=== PATIENT | male | born 1965 | race Caucasian/White ===

== ENCOUNTER 2020-08-19 14:16 | Outpatient (CLI) | payer OTHER, SELFPAY | END 2020-08-19 14:17 | disposition home or self-care (01) | LOC: ANHCOVIDVC 14:16 | PROVIDERS: PCP Internal Medicine | DX: Z23 Encounter for immunization (principal) | CPT/HCPCS: 0001A; 91300 ==

== ENCOUNTER 2020-09-09 14:16 | Outpatient (CLI) | payer OTHER, SELFPAY | END 2020-09-09 14:17 | disposition home or self-care (01) | LOC: ANHCOVIDVC 14:16 | PROVIDERS: PCP Internal Medicine | DX: Z23 Encounter for immunization (principal) | CPT/HCPCS: 0002A; 91300 ==

== ENCOUNTER → 2021-02-07 08:06 | Outpatient (CLI) | payer OTHER, SELFPAY ==
--- NOTE | ~2021-02-07 | CT_ITS ---
EXAMINATION: CT sinus wo con EXAM DATE: 02/07/2021 08:19 INDICATION: Acute sinusitis . History deviation surgery 2 years ago. Left ear muffled. TECHNIQUE: Spiral CT of the sinuses was acquired in the axial plane. Coronal and sagittal reformatte d images were also reviewed. The dose-length product (DLP) for this examination was 277.35 mGy-cm. Iterative reconstruction (ASIR) was used as dose reduction technique. Comparison is made to prior exa mination from 06/20/2019. FINDINGS: Previous exam had right upper nasal septal deviation with a spine projecting to the right, which has been resected. Nasal septum is near midline on this exam. The sinuses are normally develop ed. The sinuses are well aerated. The ostiomeatal units are patent. There is no sinus wall thic kening. Moderate amount of fluid in the left mastoid air cells, and small amount on the right, effusions. Ext ernal auditory canals are patent. The orbits and visualized soft tissues are unremarkable. IMPRESSION: 1. Moderate left, small right mastoid effusions. 2. Interval nasal septal surgery. Reviewed, dictated and finalized at location A.
== END ==
PROVIDERS: PCP Internal Medicine; Visit Provider Otolaryngology
DX: J01.90 Acute sinusitis, unspecified (principal)
CPT/HCPCS: 70486

== ENCOUNTER 2021-07-30 12:34 | Outpatient (CLI) | payer OTHER, SELFPAY ==
--- NOTE | 2021-07-30 12:57 | ECHO_ITS ---
Patient Info Name: Aram Conte Age: 56 years : 1965 Gender: Male Ht: 65 in Wt: 215 lbs BSA: 2.16 m2 HR: 63 bpm BP: 153 / 90 mmHg Heart Rhythm: Sinus Rhythm Technical Quality: Good Exam Date: 07/30/2021 1:10 PM Exam Location: [facility] Patient Status: Outpatient Admit Date: 07/30/2021 Staff Ordering Physician: Krysta Dowd [employer] Dyeing Machine Operator: Gracie Barrera RCS Attending Provider: Krysta Dowd Referring Physician: Nile CABRERA; Exam Type: CA echo doppler w bubble study Study Info Indications - cerebral vascular infarction Complete two-dimensional, color flow and Doppler transthoracic echocardiogram is performed with agitated saline. Contrast/Agitated Saline Contrast/Ag. Saline: Agitated Saline Amount: 20.00 ml Existing IV Access: Yes New IV Access: Antecubital Space and Right Site Condition: IV removed Summary 1. Left ventricular chamber dimension is normal. 2. Left ventricular systolic function is normal, estimated at 60-65%. 3. There is mildly increased left ventricular wall thickness. 4. The left ventricular diastolic function is grade I diastolic dysfunction. 5. Right to left interatrial shunt with injection of agitated saline with Valsalva only suggestive of patent foramen ovale. Clinical correlation advised. Consider transesophageal echocardiogram if clinically indicated. 6. There is trace mitral valve regurgitation. 7. There is trace tricuspid valve regurgitation. 8. No pulmonary hypertension, estimated pulmonary arterial systolic pressure is 26 mmHg. Left Ventricle Left ventricular chamber dimension is normal. Left ventricular systolic function is normal, estimated at 60-65%. There is mildly increased left ventricular wall thickness. The left ventricular diastolic function is grade I diastolic dysfunction. Right Ventricle Right ventricular chamber dimension is normal. Right ventricular systolic function is normal. Left Atria Left atrial chamber dimension is normal. Right Atria Right atrial chamber dimension is normal. Atrial Septum Right to left interatrial shunt with injection of agitated saline with Valsalva only suggestive of patent foramen ovale. Clinical correlation advised. Consider transesophageal echocardiogram if clinically indicated. Aortic Valve The aortic valve is not well visualized. There is no aortic valve stenosis. There is no aortic valve regurgitation. Pulmonic Valve The pulmonic valve is not well visualized. Mitral Valve The mitral valve has normal leaflets. There is trace mitral valve regurgitation. The mitral valve annulus is mildly calcified. Tricuspid Valve The tricuspid valve leaflets are normal. There is trace tricuspid valve regurgitation. No pulmonary hypertension, estimated pulmonary arterial systolic pressure is 26 mmHg. Pericardium/Pleural The pericardium appears epicardial fat pad. There is no pericardial effusion. Inferior Vena Cava Normal inferior vena cava with >50% collapse upon inspiration consistent with normal right atrial pressure, 5 mmHg. Aorta The aortic root size at the sinus of Valsalva is normal. Left Ventricular Outflow Tract Name Value Normal LVOT 2D
== END 2021-07-30 12:35 | disposition home or self-care (01) ==
PROVIDERS: PCP Internal Medicine; Visit Provider Nurse Practitioner
DX: I63.9 Cerebral infarction, unspecified (principal)
CPT/HCPCS: 93306; 96375

== ENCOUNTER 2021-08-04 09:23 | Outpatient (CLI) | payer OTHER, SELFPAY ==
[2021-08-04 10:09] LABS: Alanine Aminotransferase 66 U/L (4-50); Albumin Level 4.1 g/dL (3.5-5.1); Alkaline Phosphatase 95 U/L (38-126); Anion Gap 9 mmol/L (8-16); Aspartate Amino Transferase 37 U/L (17-59); Bilirubin,Total 0.7 mg/dL (0.2-1.3); Blood Urea Nitrogen 23 mg/dL (9-20); Calcium 9.2 mg/dL (8.4-10.2); Carbon Dioxide 25 mmol/L (22-30); Chloride 108 mmol/L (98-107); Cholesterol 98 mg/dL (0-200); Estimated Glomerular Filt Rate > 60; Glucose 104 mg/dL (65-110); HDL Direct 30 mg/dL; Potassium 3.8 mmol/L (3.4-5.0); Sodium 142 mmol/L (137-145); Triglycerides 88 mg/dL (<150)
[2021-08-04 10:13] LABS: Hemoglobin A1C 5.6 % (<5.7)
[2021-08-04 10:19] LABS: LDL Cholesterol Direct 39 mg/dL
[2021-08-04 11:00] LABS: Prostate Specific Antigen 2.1 ng/mL (< OR = 4.0)
== END 2021-08-04 09:24 | disposition home or self-care (01) ==
LOC: ANHLAB 09:24
PROVIDERS: PCP Internal Medicine; Visit Provider Nurse Practitioner
DX: E78.00 Pure hypercholesterolemia, unspecified (principal); R73.09 Other abnormal glucose; Z12.5 Encounter for screening for malignant neoplasm of prostate
CPT/HCPCS: 36415; 80053; 80061; 83036; 84153; G0103

== ENCOUNTER 2022-02-05 11:13 | Outpatient (CLI) | payer OTHER, SELFPAY ==
[2022-02-05 12:15] LABS: Alanine Aminotransferase 45 U/L (6-50); Alkaline Phosphatase 94 U/L (38-126); Anion Gap 9 mmol/L (8-16); Aspartate Amino Transferase 30 U/L (17-59); Bilirubin,Total 0.8 mg/dL (0.2-1.3); Blood Urea Nitrogen 23 mg/dL (9-20); Calcium 9.5 mg/dL (8.4-10.2); Carbon Dioxide 28 mmol/L (22-30); Chloride 105 mmol/L (98-107); Cholesterol 127 mg/dL (0-200); Estimated Glomerular Filt Rate > 60; Glucose 98 mg/dL (65-110); HDL Direct 35 mg/dL; Potassium 4.8 mmol/L (3.4-5.0); Sodium 142 mmol/L (137-145); Triglycerides 122 mg/dL (<150)
[2022-02-05 12:27] LABS: LDL Cholesterol Direct 52 mg/dL
[2022-02-05 13:10] LABS: Hemoglobin A1C 5.7 % (<5.7)
== END 2022-02-05 11:14 | disposition home or self-care (01) ==
LOC: ANHLAB 11:14
PROVIDERS: PCP Internal Medicine; Visit Provider Internal Medicine
DX: E78.00 Pure hypercholesterolemia, unspecified (principal); F32.9 Major depressive disorder, single episode, unspecified; R73.09 Other abnormal glucose
CPT/HCPCS: 36415; 80053; 80061; 83036; 84443

== ENCOUNTER 2022-02-09 09:15 | Outpatient (CLI) | payer OTHER, SELFPAY ==
--- NOTE | ~2022-02-09 | XR_ITS ---
EXAMINATION: XR chest 2V Exam Date/Time: 02/09/2022 9:23 CDT HISTORY: R05.9 - Cough, POST COVID Comparison: 06/13/2009. RESULT: Lines, tubes, and devices: None. Lungs and pleura: Clear. Cardiomediastinal silhouette: Stable. Other: No acute osseous or upper abdominal finding. IMPRESSION: No acute cardiopulmonary process. Reviewed, dictated and finalized at location K.
== END 2022-02-09 09:16 | disposition home or self-care (01) ==
PROVIDERS: PCP Internal Medicine; Visit Provider Internal Medicine
DX: R05.9 Cough, unspecified (principal)
CPT/HCPCS: 71046

== ENCOUNTER 2022-03-02 00:41 | Day surgery (SDC) | payer OTHER, SELFPAY ==
[2022-02-12 14:32] VITALS: BMI 35.2
[2022-03-02 09:08] VITALS: BP 145/91; PULSE 71; RESP 18; TEMP 36.4; O2SAT 98; BMI 34.3
[2022-03-02] MEDS: LACTATED RINGERS 1,000 ML 150 ML IV CONT (09:18)
--- NOTE | 2022-03-02 09:32 | WPDANESEPPF ---
Anes - Initial Pre Proc Eval Procedure: Operation Date: 03/02/22 10:00 Proposed Procedures p Screening Colonoscopy - Layo Cruz MD Date/Time: 03/02/22 09:32 Surgeon: Layo Cruz MD Pre Op Diagnosis: family hx colon ca, neoplasm screening Patient Data Age: 56 Gender: M Height: 1.65 m Weight: 93.7 kg Last Vital Signs Temp 97.6 F 03/02/22 09:08 Pulse 71 03/02/22 09:08 Resp 18 03/02/22 09:08 BP 145/91 H 03/02/22 09:08 Pulse Ox 98 03/02/22 09:08 O2 Del Method Room Air 03/02/22 09:08 Allergies Allergy/AdvReac Type Severity Reaction Status Date / Time Penicillins Allergy Unknown Unknown Verified 03/02/22 09:10 Home Medications Medication Instructions Recorded Confirmed Type clonazepam 0.5 mg tablet 0.5 mg PO BID 08/08/19 03/02/22 History topiramate 50 mg tablet 50 mg PO DAILY 08/08/19 03/02/22 History aspirin 81 mg tablet,delayed 81 mg PO DAILY 07/07/21 03/02/22 History release ([place] Low Dose Aspirin) fluticasone propionate 50 2 spray intranasal DAILY 07/07/21 03/02/22 History mcg/actuation nasal spray,suspension (Flonase Allergy Relief) omeprazole 40 mg capsule,delayed 40 mg PO DAILY 07/07/21 03/02/22 History release metoprolol succinate 25 mg 12.5 mg PO DAILY #90 tabs 08/04/21 03/02/22 Rx tablet,extended release 24 hr loratadine 10 mg tablet (Claritin) 10 mg PO DAILY 09/16/21 03/02/22 History lisinopril 20 mg tablet 20 mg PO DAILY #90 tabs 09/30/21 03/02/22 Rx atorvastatin 40 mg tablet 40 mg PO DAILY 10/21/21 03/02/22 History Patient hx anesthesia problems: none Family hx anesthesia problems: none Results Review: All pre-operative results and documents have been reviewed as part of the pre-operative evaluation. [facility] Past Medical History Medical History HTN (hypertension) IBS (irritable bowel syndrome) Migraine Patulous eustachian tube, left ear Stroke Ulcer Surgical History Surgical History History of hand surgery rt hand Status post cervical spinal fusion C3-C4 Family History Family History Sibling Malignant neoplasm of prostate Patient's sister is in good health Patient's brother is in good health Mother Patient's mother is in good health Father Patient's father is in good health Social History Social History Smoking status: Never smoker Second hand tobacco smoke exposure: Yes Alcohol intake: current Drinks per week: 3 Alcohol use details: social Substance use: never Substance use type: does not use Living arrangements: with family Spiritual care concerns: No Anes - Eval Final PreProcedure Day of Procedure 03/02/22 09:32 Patient weight: obese Heart: regular rate and rhythm Lungs: clear to auscultation Airway: Mallampati scale class II Neurological: alert and oriented Last oral intake: >/= 8 hours ASA classification: III Emergent: no Anesthetic plan: proceed Anesthesia type and monitoring: general GIVS and standard monitoring Results Review: All pre-operative results and documents have been reviewed as part of the pre-operative evaluation. Informed Consent: The patient's anesthetic plan and its attendant risks and benefits were discussed with the patient/family/POA. Questions were solicited and answers provided to the satisfaction of the patient/family/POA.
--- NOTE | 2022-03-02 09:39 | PM.HPGS ---
History of Present Illness History of Present Illness Consent: Risks, benefits, and alternatives have been discussed and questions answered. Patient agrees to proceed with procedure. Chief complaint: family hx colon ca, neoplasm screening Narrative: Aram Cotne is a 56 year old male with colonoscopy 5 years ago, brother had colon cancer Review of Systems Constitutional: Constitutional: Denies headache(s) and Denies weakness Eyes: Eyes: Denies blurry vision ENT: Reports Normal hearing present, Denies headache(s) and Denies neck pain Cardiovascular: Cardiovascular: Denies chest pain and Denies dyspnea Respiratory: Respiratory: Denies dyspnea Gastrointestinal: Gastrointestinal: Reports no additional gastrointestinal complaints Genitourinary: Genitourinary: Denies dysuria Musculoskeletal: Musculoskeletal: Denies neck pain Integumentary/Breasts: Skin/Breast: Denies dry skin Neurologic: Reports Normal hearing present, Denies headache(s) and Denies weakness Psychiatric: Psychiatric: Denies anxiety Endocrine: Endocrine: Denies change in body appearance Hematologic/Lymphatic: Hematologic/Lymphatic: Denies easy bleeding Allergic/Immunologic: Allergic/Immunologic: Denies urticaria PMFSH Past Medical History Medical History HTN (hypertension) IBS (irritable bowel syndrome) Migraine Patulous eustachian tube, left ear Stroke Ulcer Surgical History Surgical History History of hand surgery rt hand Status post cervical spinal fusion C3-C4 Family History Family History Sibling Malignant neoplasm of prostate Patient's sister is in good health Patient's brother is in good health Mother Patient's mother is in good health Father Patient's father is in good health Social History Social History Smoking status: Never smoker Second hand tobacco smoke exposure: Yes Alcohol intake: current Drinks per week: 3 Alcohol use details: social Substance use: never Substance use type: does not use Living arrangements: with family Spiritual care concerns: No Meds Home Medications and Allergies Home Medications Medication Instructions Recorded Confirmed Type clonazepam 0.5 mg tablet 0.5 mg PO BID 08/08/19 03/02/22 History topiramate 50 mg tablet 50 mg PO DAILY 08/08/19 03/02/22 History aspirin 81 mg tablet,delayed 81 mg PO DAILY 07/07/21 03/02/22 History release ([place] Low Dose Aspirin) fluticasone propionate 50 2 spray intranasal DAILY 07/07/21 03/02/22 History mcg/actuation nasal spray,suspension (Flonase Allergy Relief) omeprazole 40 mg capsule,delayed 40 mg PO DAILY 07/07/21 03/02/22 History release metoprolol succinate 25 mg 12.5 mg PO DAILY #90 tabs 08/04/21 03/02/22 Rx tablet,extended release 24 hr loratadine 10 mg tablet (Claritin) 10 mg PO DAILY 09/16/21 03/02/22 History lisinopril 20 mg tablet 20 mg PO DAILY #90 tabs 09/30/21 03/02/22 Rx atorvastatin 40 mg tablet 40 mg PO DAILY 10/21/21 03/02/22 History Allergies Allergy/AdvReac Type Severity Reaction Status Date / Time Penicillins Allergy Unknown Unknown Verified 03/02/22 09:10 Vital Signs Vital Signs - 24 hr 03/02/22 09:08 Temperature 97.6 F Pulse Rate 71 Respiratory Rate 18 Blood Pressure 145/91 H Pulse Oximetry 98 Oxygen Delivery Room Air Exam Const: General: comfortable and no acute distress HENMT: General nose exam: Normal nares present Eyes: General: appearance normal, both eyes and all related structures Neck: Neck: no JVD Resp: Auscultation: clear to auscultation bilaterally Cardio: Rate: regular rate Rhythm: regular rhythm GI: Inspection: non-distended GI Palp: Yes Soft to palpation Skin: General skin exam: normal color Neuro:
[2022-03-02 09:54] VITALS: BP 131/82; PULSE 56; RESP 18; O2SAT 98
[2022-03-02 10:04] VITALS: BP 128/78; PULSE 54; RESP 18; O2SAT 98
== END 2022-03-02 10:18 | disposition home or self-care (01) ==
PROVIDERS: PCP Internal Medicine; Visit Provider Internal Medicine Gastroenterology
PROC: 0DJD8ZZ Inspection of Lower Intestinal Tract, Via Natural or Artificial Opening Endoscopic (ICD-10-PCS; CPT 45378; principal; 2022-03-02 10:00)
DX: Z12.11 Encounter for screening for malignant neoplasm of colon (principal); D12.4 Benign neoplasm of descending colon; Z80.0 Family history of malignant neoplasm of digestive organs; K64.8 Other hemorrhoids; I10 Essential (primary) hypertension; K58.9 Irritable bowel syndrome, unspecified; Z86.73 Personal history of transient ischemic attack (TIA), and cerebral infarction without residual deficits; Z98.1 Arthrodesis status; Z79.82 Long term (current) use of aspirin; E66.9 Obesity, unspecified; Z68.34 Body mass index [BMI] 34.0-34.9, adult
CPT/HCPCS: 45385; 88305; J2704; J7120

== ENCOUNTER 2022-05-06 14:22 | Outpatient (CLI) | payer OTHER, SELFPAY ==
--- NOTE | ~2022-05-06 | MR_ITS ---
EXAMINATION: MR brain/brain stem wo con DATE: 05/06/2022 14:58 INDICATION: Stroke TECHNIQUE: Magnetic resonance imaging (MRI) of the brain and brainstem was performed without intraven ous contrast. Sequences included sagittal and axial T1-weighted SE, axial diffusion-weighted FS SE, a xial T2*-weighted GRE, axial 3D SWAN, axial T2-weighted FLAIR, and axial T2-weighted FSE. Apparent di ffusion coefficient (ADC) maps were created. COMPARISON: Brain MR dated 01/05/2011 FINDINGS: There are no areas of restricted diffusion to suggest acute infarction. Single tiny focus of suscepti bility artifact consistent with chronic microhemorrhage along the sylvian fissure, unclear whether th is is on the frontal or temporal side of the fissure. No other intracranial hemorrhage. No abnormal i ntracranial mass lesion. There are no intraparenchymal signal abnormalities seen on the other pulse s equences. The ventricles are symmetric and normal in size. There are no abnormal extra-axial fluid co llections. Flow voids are seen in the cerebral arteries on the T2-weighted sequences consistent with their expected patency. Mild mucosal thickening at the bilateral ethmoid sinuses. Visualized orbits a nd soft tissues are unremarkable. IMPRESSION: 1. Single tiny focus of susceptibility artifact consistent with chronic microhemorrhage along the rig ht sylvian fissure. Otherwise normal brain MRI with no acute infarct.. Reviewed, dictated and finalized at location A. RV[employer] LIFEGUARD IMPRESSION: 1. Single tiny focus of susceptibility artifact consistent with chronic microhe morrhage along the right sylvian fissure. Otherwise normal brain MRI with no ac [place] infarct..
== END 2022-05-06 14:23 | disposition home or self-care (01) ==
PROVIDERS: PCP Internal Medicine; Visit Provider Psychiatry & Neurology Neurology
DX: I63.9 Cerebral infarction, unspecified (principal)
CPT/HCPCS: 70551

== ENCOUNTER 2022-06-06 13:23 | Emergency (ER) | payer OTHER, SELFPAY ==
--- NOTE | 2022-06-06 13:27 | ED.URI ---
HPI - URI/Sore Throat General Chief Complaint: Upper Respiratory Infection Stated Complaint: Congestion,Cough,Headache Time Seen by Provider: 06/06/22 13:36 Source: patient and RN notes reviewed Mode of arrival: ambulatory Limitations: no limitations History of Present Illness HPI Narrative: 56-year-old male presents concern for sinus drainage, cough, fever, headache discharge yesterday. Reports had a COVID test at home was negative. Reports his has similar symptoms. He denies body aches, chills, sweats, shortness of breath, nausea, vomiting, diarrhea MD elicited complaint: fever and cough Related Data Home Medications Medication Instructions Recorded Confirmed clonazepam 0.5 mg tablet 0.5 mg PO BID 08/08/19 06/06/22 topiramate 50 mg tablet 50 mg PO DAILY 08/08/19 06/06/22 aspirin 81 mg tablet,delayed 81 mg PO DAILY 07/07/21 06/06/22 release (Teetee Low Dose Aspirin) fluticasone propionate 50 2 spray intranasal DAILY 07/07/21 06/06/22 mcg/actuation nasal spray,suspension (Flonase Allergy Relief) omeprazole 40 mg capsule,delayed 40 mg PO DAILY 07/07/21 06/06/22 release loratadine 10 mg tablet (Claritin) 10 mg PO DAILY 09/16/21 06/06/22 atorvastatin 40 mg tablet 40 mg PO DAILY 10/21/21 06/06/22 Allergies Allergy/AdvReac Type Severity Reaction Status Date / Time Penicillins Allergy Unknown Unknown Verified 04/07/22 14:07 Review of Systems Review of Systems: CONSTITUTIONAL: Reports malaise, low-grade fever. EYES: Denies visual changes, redness, or discharge. ENT: Reports rhinorrhea, congestion. Denies sinus pain, otalgia and sore throat. CARDIOVASCULAR: Denies chest pain, palpitations, or edema. RESPIRATORY: Reports cough. Denies dyspnea. GASTROINTESTINAL: Denies abdominal pain, nausea, vomiting, diarrhea SKIN: Denies rash or itching. MUSCULOSKELETAL: Denies myalgia. NEUROLOGIC: Reports headache. All systems reviewed & are unremarkable except as noted in HPI and below PMFSH Past Medical History Medical History HTN (hypertension) IBS (irritable bowel syndrome) Migraine Patulous eustachian tube, left ear Stroke Ulcer Surgical History Surgical History History of hand surgery rt hand Status post cervical spinal fusion C3-C4 Family History Family History Sibling Malignant neoplasm of prostate Patient's sister is in good health Patient's brother is in good health Mother Patient's mother is in good health Father Patient's father is in good health Social History Social History Smoking status: Never smoker Second hand tobacco smoke exposure: Yes Alcohol intake: current Drinks per week: 3 Alcohol use details: social Substance use: never Substance use type: does not use Spiritual care concerns: No Comments At time of signature, agree with nursing past medical, surgical, social and family history. There is no relevant family history pertinent to the presenting complaint Exam Narrative: GENERAL: Well-appearing, well-nourished, and in no acute distress. HEAD: Normocephalic EYES: PERRLA, conjunctivae clear ENT: Nares clear, turbinates edematous and erythematous, clear discharge. Mucous membranes moist. TM pearly portillo with dull light reflex bilaterally; no tragal tenderness. Oropharynx not erythematous without lesions. Tonsils not enlarged and without exudate, no drooling, no hoarseness, no trismus, uvula midline. NECK: Supple. No lymphadenopathy CHEST: Clear to auscultation, breath sounds equal. No wheezing, rhonchi, rales, or stridor. No respiratory distress, speaks in full sentences. HEART: Regular rate and rhythm. No murmur heard. SKIN: Warm, dry, no rash. NEURO: Alert and oriented x3. PSYCH: Normal mood and affect Course Course Emergen
[2022-06-06 13:32] VITALS: BP 153/94; PULSE 110; RESP 18; TEMP 37.8; O2SAT 98
== END 2022-06-06 13:49 | disposition home or self-care (01) ==
PROVIDERS: Emergency Provider Nurse Practitioner; PCP Internal Medicine
DX: R05.9 Cough, unspecified (principal); R50.9 Fever, unspecified; R51.9 Headache, unspecified; R09.81 Nasal congestion; I10 Essential (primary) hypertension; Z79.82 Long term (current) use of aspirin
CPT/HCPCS: 99213; G0463

== ENCOUNTER 2022-06-26 16:53 | Emergency (ER) | payer OTHER, SELFPAY ==
--- NOTE | ~2022-06-26 | XR_ITS ---
XR ankle RT min 3V DATE: 06/26/2022 17:11 INDICATION: Rolled ankle 2 days ago; lateral pain. TECHNIQUE: 4 views COMPARISON: None FINDINGS: There is mild primarily lateral soft tissue swelling of the ankle. No fracture or dislocation of the ankle or disruption of the ankle mortise. No periosteal reaction or bone destruction. There is some anterior tibial artery calcification. IMPRESSION: Mild lateral soft tissue swelling Reviewed, dictated and finalized at location A. G [employer]RARIAN
[2022-06-26 17:15] VITALS: BP 156/91; PULSE 65; RESP 18; TEMP 36.2; O2SAT 100
--- NOTE | 2022-06-26 17:17 | ED.LOWEXIN ---
HPI - Extremity Injury (Lower) General Chief Complaint: Extremity Injury, Lower Stated Complaint: fall rt ankle injury Time Seen by Provider: 06/26/22 17:20 Source: patient Mode of arrival: ambulatory Limitations: no limitations History of Present Illness HPI Narrative: Aram is a 56-year-old male patient presenting to the clinic today with complaints of right ankle injury that occurred 2 nights ago. He reports that he stepped off of a step and thinks he may have inverted his foot. Reports pain to the lateral right ankle. Related Data Home Medications Medication Instructions Recorded Confirmed clonazepam 0.5 mg tablet 0.5 mg PO BID 08/08/19 06/06/22 topiramate 50 mg tablet 50 mg PO DAILY 08/08/19 06/06/22 aspirin 81 mg tablet,delayed 81 mg PO DAILY 07/07/21 06/06/22 release ([place]ee Low Dose Aspirin) fluticasone propionate 50 2 spray intranasal DAILY 07/07/21 06/06/22 mcg/actuation nasal spray,suspension (Flonase Allergy Relief) omeprazole 40 mg capsule,delayed 40 mg PO DAILY 07/07/21 06/06/22 release loratadine 10 mg tablet (Claritin) 10 mg PO DAILY 09/16/21 06/06/22 atorvastatin 40 mg tablet 40 mg PO DAILY 10/21/21 06/06/22 Allergies Allergy/AdvReac Type Severity Reaction Status Date / Time Penicillins AdvReac Mild Hives Verified 06/26/22 17:06 Review of Systems Review of Systems: Pertinent positives per HPI. Patient denies any fever, chills, rash, headache, visual changes, dizziness, cough, runny nose, sore throat, shortness of breath, chest pain, palpitations, nausea, vomiting, diarrhea, constipation, abdominal pain, or any urinary issues. [facility] Past Medical History Medical History HTN (hypertension) IBS (irritable bowel syndrome) Migraine Patulous eustachian tube, left ear Stroke Ulcer Surgical History Surgical History History of hand surgery rt hand Status post cervical spinal fusion C3-C4 Family History Family History Sibling Malignant neoplasm of prostate Patient's sister is in good health Patient's brother is in good health Mother Patient's mother is in good health Father Patient's father is in good health Social History Social History Smoking status: Never smoker Second hand tobacco smoke exposure: Yes Alcohol intake: current Drinks per week: 3 Alcohol use details: social Substance use: never Substance use type: does not use Spiritual care concerns: No Comments At the time of my signature, I reviewed and agree with the nursing past medical, surgical, social, and family history. There is no relevant family history pertinent to the patient complaint. Exam Narrative: General: Well-developed, well nourished, in no apparent distress Head: Normocephalic, atraumatic. Cardio: Regular rate and rhythm, s1 and s2 normal, no murmur appreciated. Resp: Clear to auscultation bilaterally, no rhonchi, rales, wheezing or rubs. Musculoskeletal: No deformity, bruising and swelling to the right lateral ankle and foot, tender to palpation over the right lateral distal fibula, some discomfort with eversion of the foot, grossly normal range of motion, muscle strength strong and equal, peripheral pulse strong, no cyanosis, normal gait and station Course Course Emergency Course: Portions of this record may have been created with voice recognition software. Level of Care: Express Care Visit Vital Signs Vital signs: Vital Signs Temperature 36.2 C L 06/26/22 17:15 Pulse Rate 65 06/26/22 17:15 Respiratory Rate 18 06/26/22 17:15 Blood Pressure 156/91 H 06/26/22 17:15 Pulse Oximetry 100 06/26/22 17:15 Oxygen Delivery Room Air 06/26/22 17:15 Temperature 36.2 C L 06/26/22 17:15 Pulse Rate 65 06/26/22 17:15 Respirator
== END 2022-06-26 17:38 | disposition home or self-care (01) ==
PROVIDERS: Emergency Provider Nurse Practitioner Family; PCP Internal Medicine
DX: S93.401A Sprain of unspecified ligament of right ankle, initial encounter (principal); X50.9XXA Other and unspecified overexertion or strenuous movements or postures, initial encounter; I10 Essential (primary) hypertension; Z86.73 Personal history of transient ischemic attack (TIA), and cerebral infarction without residual deficits; Z79.82 Long term (current) use of aspirin
CPT/HCPCS: 73610; 99213; G0463

== ENCOUNTER 2022-08-17 11:09 | Outpatient (CLI) | payer OTHER, SELFPAY ==
--- NOTE | ~2022-08-17 | XR_ITS ---
XR lumbar spine 2-3V DATE: 08/17/2022 11:35 INDICATION: Chronic low back pain, radiating to right lower extremity TECHNIQUE: AP, lateral, coned lateral lumbosacral views COMPARISON: None FINDINGS: There is minimal levoscoliosis of the lumbar spine. The included lower thoracic and lumbar pedicles are intact. No fracture or bone destruction is detect ed. There is mild degenerative disc disease of the lumbar spine. There is prominent degenerative change at the apophyseal joints at L4-5 and L5-S1 with associated min imal grade 1 anterolisthesis at L4-5. The sacroiliac joints are intact. IMPRESSION: Minimal levoscoliosis Mild degenerative disc disease Minimal grade 1 anterolisthesis at L4-5 due to degenerative change at the apophyseal joints Reviewed, dictated and finalized at location B. ANCE KEEPER IMPRESSION: Minimal levoscoliosis Mild degenerative disc disease Minimal grade 1 anterolisthesis at L4-5 due to degenerative change at the apoph yseal joints
[2022-08-17 11:28] LABS: Hematocrit 52.2 % (42.0-52.0); Hemoglobin 17.4 g/dL (14.0-18.0); Mean Corpuscular HGB Conc 33.3 g/dl (32-36); Mean Corpuscular Hemoglobin 27.7 pg (26-34); Mean Platelet Volume 10.2 fl (7.4-10.4); Platelet Count Result 233 k/mm3 (150-375); Red Blood Count 6.29 M/mm3 (4.6-6.20); Red Cell Distribution Width 14.7 % (11.5-14.5); White Blood Count 7.6 K/mm3 (4.5-10.0)
[2022-08-17 11:38] LABS: Alanine Aminotransferase 58 U/L (6-50); Albumin Level 4.5 g/dL (3.5-5.1); Alkaline Phosphatase 97 U/L (38-126); Anion Gap 6 mmol/L (8-16); Aspartate Amino Transferase 35 U/L (17-59); Bilirubin,Total 0.6 mg/dL (0.2-1.3); Blood Urea Nitrogen 21 mg/dL (9-20); Calcium 8.8 mg/dL (8.4-10.2); Carbon Dioxide 26 mmol/L (22-30); Chloride 105 mmol/L (98-107); Cholesterol 131 mg/dL (0-200); Estimated Glomerular Filt Rate > 60; Glucose 96 mg/dL (65-110); HDL Direct 39 mg/dL; Potassium 4.1 mmol/L (3.4-5.0); Sodium 137 mmol/L (137-145); Triglycerides 106 mg/dL (<150)
[2022-08-17 11:49] LABS: LDL Cholesterol Direct 57 mg/dL
[2022-08-17 12:46] LABS: Hemoglobin A1C 5.6 % (<5.7)
[2022-08-17 22:41] LABS: Prostate Specific Antigen 2.2 ng/mL (< OR = 4.0)
== END 2022-08-17 11:10 | disposition home or self-care (01) ==
PROVIDERS: Internal Medicine; PCP Internal Medicine; Visit Provider Internal Medicine
DX: Z00.00 Encounter for general adult medical examination without abnormal findings (principal); M54.50 Low back pain, unspecified; G89.29 Other chronic pain; E78.00 Pure hypercholesterolemia, unspecified; I10 Essential (primary) hypertension; R73.09 Other abnormal glucose; E78.5 Hyperlipidemia, unspecified; N40.0 Benign prostatic hyperplasia without lower urinary tract symptoms; E66.9 Obesity, unspecified
CPT/HCPCS: 36415; 72100; 80053; 80061; 83036; 84153; 84443; 85027; G0103

== ENCOUNTER 2022-09-28 08:41 | Outpatient (CLI) | payer OTHER, SELFPAY ==
--- NOTE | 2022-10-24 17:23 | WPDSLEEPSTUD ---
Sleep Study Date of Study: 09/28/22 Ordering Provider: Kenn Beck DO Interpreting Physician: Maile Sanabria DO Sleep Study Type: Polysomnogram Height: 1.65 m Weight: 102.058 kg Body Mass Index: 37.4 Neck Circumference (inches): 16 [place]: 12 Reason for Sleep Study Unrefreshing sleep, daytime hypersomnia Sleep History The patient is a 57-year-old male with migraines, hypertension, hyperlipidemia, tremors, GERD, seasonal allergies, benign prostatic hyperplasia, irritable bowel syndrome and history of stroke had a sleep study ordered by his stranding supervisor for evaluation of sleep apnea. 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 the patient occasionally awakens at night with heartburn, belching or cough. He frequently snores loudly enough that others complain. He frequently has trouble sleeping when he has a cold. He rarely wakes up gasping for air throughout the night. He rarely has breathing problems at night observed by himself or others. He occasionally sweats excessively at night. He occasionally has heart palpitations or irregular heartbeats during the night. He frequently falls asleep during the day but never while driving. He denies sleep paralysis, cataplexy and hypnagogic / hypnopompic hallucinations. He occasionally has trouble at school or work due to sleepiness. He rarely feels afraid of going to sleep. He occasionally has nightmares and occasionally remembers his dreams. Constantly has thoughts racing through his mind. He rarely feels sad or depressed. He frequently has anxiety. He frequently has muscular tension. He frequently notices parts of his body jerk. He occasionally kicks during the night. He occasionally has crawling and aching feelings in his legs and occasionally has leg pain during the night. He occasionally grinds his teeth during sleep and occasionally awakens with morning jaw pain. He is occasionally bothered by pain during the day and occasionally awakened by pain during night. He frequently wakes feeling stiff. He frequently wakes up with sore or achy muscles. He occasionally wakes up with pain in the neck, spine or other joints. He goes to bed at 10:00 p.m. on both weekdays and weekends. It takes him 20 of 30 minutes to fall asleep. He wakes up 1-3 times throughout the night to urinate or to find positions. He is able to fall back asleep within a few minutes. He wakes up at 5:00 a.m. on weekdays and between 7-8 a.m. on the weekends. He typically gets 6-7 hours of sleep per night. He will stay in bed for 5-10 minutes after waking up in the morning. He currently lives with his and 2 children. He does not consume any caffeinated beverages within 2 hours of bedtime. He does not engage in physical exercise before bedtime. He will watch television before falling asleep. He will occasionally take naps in the afternoon or the evening but they are not refreshing. He does not consume any caffeinated beverages throughout the day. He will occasionally consume alcohol in social settings. He denies tobacco and recreational drug use. [facility] Past Medical History Medical History BPH w/o urinary obs/LUTS HTN (hypertension) IBS (irritable bowel syndrome) Migraine Patulous eustachian tube, left ear Right-sided cerebrovascular accident (CVA) Stroke Tremor Ulcer Surgical History Surgical History History of hand surgery rt hand Status post cervical spinal fusion C3-C4 Family History Family History Sibling Malignant neoplasm of prostate Patient's sister is in good health Patient's brother is in good health Mother Patient's mother is in good health Father Patient's father is in good health Social History Social History Smoking status: Never
[2022-10-24 17:26] VITALS: BMI 37.4
--- NOTE | 2023-05-28 11:30 | SLEEP ---
new calls [phone]
== END 2022-09-29 06:35 | disposition home or self-care (01) ==
LOC: ANHCSM 08:42
PROVIDERS: PCP Internal Medicine; Visit Provider Internal Medicine Cardiovascular Disease
DX: G47.33 Obstructive sleep apnea (adult) (pediatric) (principal); G47.10 Hypersomnia, unspecified
CPT/HCPCS: 95810

== ENCOUNTER 2023-01-04 08:27 | Outpatient (CLI) | payer OTHER, SELFPAY ==
--- NOTE | 2023-01-29 15:20 | WPDSLEEPSTUD ---
Sleep Study Date of Study: 01/04/23 Ordering Provider: Ted Lane APRN Interpreting Physician: Mary Beach MD Sleep Study Type: CPAP Titration Height: 1.65 m Weight: 101.151 kg Body Mass Index: 37.0 Neck Circumference (inches): 16 [place]: 10 Reason for Sleep Study * 09/28/22 Basic sleep study = AHI of 5.4, desaturation down to 81% consistent with mild central sleep apnea.? All of the apneas that were seen in the study were centrals.? This is likely due to the patient's previous stroke.? He retutns for CPAP Titration in the lab. He is not a candidate for APAP due to all apneas being centrals. Sleep History Aram Conte is a 57-year-old male with migraines, hypertension, hyperlipidemia, tremors, GERD, seasonal allergies, benign prostatic hyperplasia, irritable bowel syndrome and history of stroke. had a sleep study ordered by his media services director for evaluation of sleep apnea. 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 the patient occasionally awakens at night with heartburn, belching or cough. He frequently snores loudly enough that others complain. He frequently has trouble sleeping when he has a cold. He rarely wakes up gasping for air throughout the night. He rarely has breathing problems at night observed by himself or others. He occasionally sweats excessively at night. He occasionally has heart palpitations or irregular heartbeats during the night. He frequently falls asleep during the day but never while driving. He denies sleep paralysis, cataplexy and hypnagogic / hypnopompic hallucinations. He occasionally has trouble at school or work due to sleepiness. He rarely feels afraid of going to sleep. He occasionally has nightmares and occasionally remembers his dreams. Constantly has thoughts racing through his mind. He rarely feels sad or depressed. He frequently has anxiety. He frequently has muscular tension. He frequently notices parts of his body jerk. He occasionally kicks during the night. He occasionally has crawling and aching feelings in his legs and occasionally has leg pain during the night. He occasionally grinds his teeth during sleep and occasionally awakens with morning jaw pain. He is occasionally bothered by pain during the day and occasionally awakened by pain during night. He frequently wakes feeling stiff. He frequently wakes up with sore or achy muscles. He occasionally wakes up with pain in the neck, spine or other joints. He goes to bed at 10:00 p.m. on both weekdays and weekends. It takes him 20 of 30 minutes to fall asleep. He wakes up 1-3 times throughout the night to urinate or to find positions. He is able to fall back asleep within a few minutes. He wakes up at 5:00 a.m. on weekdays and between 7-8 a.m. on the weekends. He typically gets 6-7 hours of sleep per night. He will stay in bed for 5-10 minutes after waking up in the morning. He currently lives with his and 2 children. He does not consume any caffeinated beverages within 2 hours of bedtime. He does not engage in physical exercise before bedtime. He will watch television before falling asleep. He will occasionally take naps in the afternoon or the evening but they are not refreshing. He does not consume any caffeinated beverages throughout the day. He will occasionally consume alcohol in social settings. He denies tobacco and recreational drug use. [facility] Past Medical History Medical History BPH w/o urinary obs/LUTS HTN (hypertension) IBS (irritable bowel syndrome) Migraine Patulous eustachian tube, left ear Right-sided cerebrovascular accident (CVA) Stroke Tremor Ulcer Surgical History Surgical History History of hand surgery rt hand Status post cervical spinal fusion C3-C4 Family History Family History Sibling Malignan
[2023-01-29 16:12] VITALS: BMI 37.0
== END 2023-01-05 06:42 | disposition home or self-care (01) ==
LOC: ANHCSM 08:27
PROVIDERS: PCP Family Medicine; Visit Provider Nurse Practitioner Family
DX: G47.31 Primary central sleep apnea (principal); G47.33 Obstructive sleep apnea (adult) (pediatric)
CPT/HCPCS: 95811

== ENCOUNTER 2023-01-16 09:25 | Outpatient (CLI) | payer OTHER, SELFPAY ==
[2023-01-16 10:43] LABS: Iron 94 ug/dL (49-181)
[2023-01-16 10:52] LABS: Percent Iron Saturation 25 % (20-50)
== END 2023-01-16 09:26 | disposition home or self-care (01) ==
PROVIDERS: PCP Family Medicine; Visit Provider Nurse Practitioner Family
DX: R53.83 Other fatigue (principal); G25.81 Restless legs syndrome
CPT/HCPCS: 36415; 82607; 82728; 83540; 83550

== ENCOUNTER 2023-02-22 11:29 | Outpatient (CLI) | payer OTHER, SELFPAY ==
[2023-02-22 13:05] LABS: Appearance Urine Clear (Clear); Bilirubin Urine Negative (Negative); Blood Urine Negative (Negative); Color Urine Yellow (Yellow); Glucose Urine UA Negative (Negative); Ketones Urine Negative (Negative); Leukocyte Esterase Ur Negative LEU/UL (NEGATIVE); Nitrate Urine Negative (Negative); Protein Urine Negative (Negative); Specific Grav Ur 1.016 (1.001-1.035); Urobilinogen Urine 0.2 mg/dL (<2.0); pH Urine 7.5 (5.0-9.0)
[2023-02-22 13:06] LABS: Basophils Percent Auto 0.5 % (0.2-1.2); Eosinophils Absolute Auto 0.1 K/mm3 (0-0.3); Eosinophils Percent Auto 1.3 % (0-4.4); Hematocrit 50.4 % (42.0-52.0); Hemoglobin 16.9 g/dL (14.0-18.0); Immature Granulocyte Absolute 0.02 K/mm3 (0.00-0.031); Immature Granulocyte Percent A 0.3 % (0-0.5); Lymphocytes Absolute Auto 1.96 K/mm3 (0.9-3.2); Lymphocytes Percent Auto 25.4 % (18.3-44.2); Mean Corpuscular HGB Conc 33.5 g/dl (32-36); Mean Corpuscular Hemoglobin 27.9 pg (26-34); Mean Corpuscular Volume 83.3 fl (80-100); Mean Platelet Volume 10.8 fl (7.4-10.4); Monocytes Absolute Auto 0.5 K/mm3 (0.1-0.6); Monocytes Percent Auto 6.6 % (2.6-8.5); Neutrophils Absolute Auto 5.1 K/mm3 (1.3-6.7); Neutrophils Percent Auto 65.9 % (45.5-73.1); Platelet Count Result 259 k/mm3 (150-375); Red Blood Count 6.05 M/mm3 (4.6-6.20); Red Cell Distribution Width 13.8 % (11.5-14.5); White Blood Count 7.7 K/mm3 (4.5-10.0)
[2023-02-22 13:06] LABS: Add Urine Microscopic? NO
[2023-02-22 13:22] LABS: Alanine Aminotransferase 66 U/L (6-50); Albumin Level 4.3 g/dL (3.5-5.1); Alkaline Phosphatase 97 U/L (38-126); Anion Gap 8 mmol/L (8-16); Aspartate Amino Transferase 36 U/L (17-59); Bilirubin,Total 0.7 mg/dL (0.2-1.3); Blood Urea Nitrogen 18 mg/dL (9-20); Calcium 8.8 mg/dL (8.4-10.2); Carbon Dioxide 27 mmol/L (22-30); Chloride 104 mmol/L (98-107); Cholesterol 128 mg/dL (0-200); Estimated Glomerular Filt Rate > 60; Glucose 105 mg/dL (65-110); HDL Direct 36 mg/dL; Potassium 3.9 mmol/L (3.4-5.0); Sodium 139 mmol/L (137-145); Triglycerides 72 mg/dL (<150)
[2023-02-22 13:33] LABS: LDL Cholesterol Direct 71 mg/dL
[2023-02-22 14:29] LABS: Creatinine Urine 91.3 mg/dL
[2023-02-22 14:34] LABS: Microalbumin Urine Random 6.4 mg/L (0-16.7)
== END 2023-02-22 11:30 | disposition home or self-care (01) ==
PROVIDERS: PCP Nurse Practitioner Family; Visit Provider Nurse Practitioner Family
DX: M25.561 Pain in right knee (principal); M25.562 Pain in left knee; R35.0 Frequency of micturition; E78.00 Pure hypercholesterolemia, unspecified; G43.909 Migraine, unspecified, not intractable, without status migrainosus; G47.33 Obstructive sleep apnea (adult) (pediatric); G89.29 Other chronic pain; I10 Essential (primary) hypertension; M54.50 Low back pain, unspecified; R73.09 Other abnormal glucose
CPT/HCPCS: 36415; 73564; 80053; 80061; 81003; 82043; 85025; 87086

== ENCOUNTER 2023-03-18 11:27 | Outpatient (CLI) | payer OTHER, SELFPAY | END 2023-03-18 11:28 | disposition home or self-care (01) | LOC: ANHLAB 11:28 | PROVIDERS: PCP Nurse Practitioner Family; Visit Provider Physician Assistant | DX: D64.9 Anemia, unspecified (principal) | CPT/HCPCS: 36415; 82728 ==

== ENCOUNTER 2023-08-11 09:49 | Outpatient (CLI) | payer OTHER, SELFPAY ==
--- NOTE | 2023-08-11 09:53 | EST_ITS ---
Patient Info Name: Aram Conte Age: 58 years : 1965 Gender: Male Ht: 65 in Wt: 219 lbs BSA: 2.18 m2 HR: 56 bpm BP: 150 / 102 mmHg Exam Date: 08/11/2023 10:07 AM Exam Location: Echo Lab Patient Status: Outpatient Admit Date: 08/11/2023 Staff Ordering Physician: Kenn Beck DO Attending Provider: Kenn Beck DO Exercise Technologist: Em Escalante RDCS Exercise Physician: Kenn Beck DO Exam Type: CA stress test treadmill Study Info A treadmill exercise stress test was performed. Summary 1. 1. Negative Alfonso exercise stress test for ischemic ST changes by ECG criteria. 2. 2. Good functional capacity, achieving 10 METs of workload. 3. 3. Baseline hypertension. 4. 4. Appropriate HR response to exercise. 5. 5. Appropriate HR recovery at 1 minute post exercise. 6. 6. No imaging with stress testing. 7. 7. Patient informed of the above results. Protocol: Alfonso Stress ECG Details Stage: REST Duration (min): 1 min : 25 sec Speed (mph): 0.0 Grade (%): 0 HR (bpm): 57 SBP (mmHg): 150 DBP (mmHg): 102 METS: --- Stage: REST Duration (min): 3 min : 43 sec Speed (mph): 0.0 Grade (%): 0 HR (bpm): 65 SBP (mmHg): 150 DBP (mmHg): 102 METS: --- Stage: STAGE 1 Duration (min): 1 min : 0 sec Speed (mph): 1.7 Grade (%): 10 HR (bpm): 87 SBP (mmHg): 150 DBP (mmHg): 102 METS: --- Stage: STAGE 1 Duration (min): 2 min : 0 sec Speed (mph): 1.7 Grade (%): 10 HR (bpm): 96 SBP (mmHg): 150 DBP (mmHg): 102 METS: --- Stage: STAGE 1 Duration (min): 3 min : 0 sec Speed (mph): 1.7 Grade (%): 10 HR (bpm): 101 SBP (mmHg): 170 DBP (mmHg): 93 METS: --- Stage: STAGE 2 Duration (min): 1 min : 0 sec Speed (mph): 2.5 Grade (%): 12 HR (bpm): 107 SBP (mmHg): 170 DBP (mmHg): 93 METS: --- Stage: STAGE 2 Duration (min): 2 min : 0 sec Speed (mph): 2.5 Grade (%): 12 HR (bpm): 114 SBP (mmHg): 174 DBP (mmHg): 94 METS: --- Stage: STAGE 2 Duration (min): 3 min : 0 sec Speed (mph): 2.5 Grade (%): 12 HR (bpm): 120 SBP (mmHg): 174 DBP (mmHg): 94 METS: --- Stage: STAGE 3 Duration (min): 1 min : 0 sec Speed (mph): 3.4 Grade (%): 14 HR (bpm): 131 SBP (mmHg): 197 DBP (mmHg): 98 METS: --- Stage: STAGE 3 Duration (min): 2 min : 0 sec Speed (mph): 3.4 Grade (%): 14 HR (bpm): 139 SBP (mmHg): 197 DBP (mmHg): 98 METS: --- Stage: STAGE 3 Duration (min): 3 min : 0 sec Speed (mph): 3.4 Grade (%): 14 HR (bpm): 142 SBP (mmHg): 199 DBP (mmHg): 104 METS: --- Stage: STAGE 4 Duration (min): 0 min : 1 sec Speed (mph): 4.2 Grade (%): 16 HR (bpm): 142 SBP (mmHg): 199 DBP (mmHg): 104 METS: --- Stage: RECOVERY Duration (min): 0 min : 58 sec Speed (mph): 0.0 Grade (%): 0 HR (bpm): 116 SBP (mmHg): 199 DBP (mmHg): 104 METS: ---
== END 2023-08-11 09:50 | disposition home or self-care (01) ==
LOC: ANHCARD 09:50
PROVIDERS: PCP Nurse Practitioner Family; Visit Provider Internal Medicine Cardiovascular Disease
DX: R07.9 Chest pain, unspecified (principal); I10 Essential (primary) hypertension
CPT/HCPCS: 93017

== ENCOUNTER 2024-03-24 08:13 | Outpatient (CLI) | payer OTHER, SELFPAY ==
[2024-03-24 08:54] LABS: Basophils Percent Auto 0.5 % (0.2-1.2); Eosinophils Absolute Auto 0.1 K/mm3 (0-0.3); Eosinophils Percent Auto 1.8 % (0-4.4); Hematocrit 48.5 % (42.0-52.0); Hemoglobin 16.1 g/dL (14.0-18.0); Immature Granulocyte Absolute 0.03 K/mm3 (0.00-0.031); Immature Granulocyte Percent A 0.5 % (0-0.5); Lymphocytes Absolute Auto 1.66 K/mm3 (0.9-3.2); Lymphocytes Percent Auto 27.8 % (18.3-44.2); Mean Corpuscular HGB Conc 33.2 g/dl (32-36); Mean Corpuscular Hemoglobin 27.4 pg (26-34); Mean Corpuscular Volume 82.6 fl (80-100); Mean Platelet Volume 10.5 fl (7.4-10.4); Monocytes Absolute Auto 0.5 K/mm3 (0.1-0.6); Monocytes Percent Auto 7.9 % (2.6-8.5); Neutrophils Absolute Auto 3.7 K/mm3 (1.3-6.7); Neutrophils Percent Auto 61.5 % (45.5-73.1); Platelet Count Result 204 k/mm3 (150-375); Red Blood Count 5.87 M/mm3 (4.6-6.20); Red Cell Distribution Width 13.3 % (11.5-14.5)
[2024-03-24 10:00] LABS: Prostate Specific Antigen 2.2 ng/mL (< OR = 4.0)
[2024-03-24 10:23] LABS: Alanine Aminotransferase 41 U/L (6-50); Albumin Level 3.9 g/dL (3.5-5.1); Alkaline Phosphatase 84 U/L (38-126); Anion Gap 9 mmol/L (4-12); Aspartate Amino Transferase 27 U/L (17-59); Bilirubin,Total 0.6 mg/dL (0.2-1.3); Blood Urea Nitrogen 21 mg/dL (9-20); Calcium 8.8 mg/dL (8.4-10.2); Carbon Dioxide 25 mmol/L (22-30); Chloride 105 mmol/L (98-107); Cholesterol 110 mg/dL (0-200); Estimated Glomerular Filt Rate > 60; Glucose 114 mg/dL (65-110); HDL Direct 32 mg/dL; Potassium 4.2 mmol/L (3.4-5.0); Sodium 139 mmol/L (137-145); Triglycerides 70 mg/dL (<150)
[2024-03-24 10:34] LABS: LDL Cholesterol Direct 49 mg/dL
[2024-03-24 11:40] LABS: Hemoglobin A1C 5.8 % (<5.7)
== END 2024-03-24 08:14 | disposition home or self-care (01) ==
PROVIDERS: PCP Nurse Practitioner Family; Referring Provider Internal Medicine Cardiovascular Disease; Visit Provider Student in an Organized Health Care Education/Training Program
DX: Z12.5 Encounter for screening for malignant neoplasm of prostate (principal); M25.561 Pain in right knee; M25.562 Pain in left knee; M54.50 Low back pain, unspecified; G89.29 Other chronic pain; I10 Essential (primary) hypertension; E78.00 Pure hypercholesterolemia, unspecified; G43.909 Migraine, unspecified, not intractable, without status migrainosus; G47.33 Obstructive sleep apnea (adult) (pediatric); Z87.11 Personal history of peptic ulcer disease
CPT/HCPCS: 36415; 80053; 80061; 83036; 84153; 85025; G0103

== ENCOUNTER 2025-02-02 07:16 | Outpatient (CLI) | payer OTHER, SELFPAY ==
--- OUTSIDE RECORDS SUMMARY | 2025-02-02 07:20 | XMS_ITS | Clinical Summary ---
Author Organization [facility] [employer] Address [address] [place] [address] Care Team Providers Care Gold Reclaimer Name Role Phone Chuck Bullard DO Primary Care Provider [phone] Source Comments [facility],non-owned Affiliates and Associated Physician Practices is amultiple site organization consisting of ambulatory clinics and hospital sitesin [place], [place], [place] and [place]. This disclosure is being madepursuant to the Care Everywhere program and may not contain all information available regarding this patient. Last updated 18.[facility] [employer] Allergies Active Allergy Reactions Criticality Noted Date Comments Penicillins 06/30/2016 Medications * Be aware that medications may not be up to date on this document. Alwaysverify current medications with the patient. 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 Gender Identity Not on file Sexual Orientation Not on file Last Filed Vital Signs Vital Sign Reading Time Taken Comments Blood Pressure 128/86 04/20/2017 2:56 PM RIVET HOLE MACHINE OPERATOR Pulse 76 04/20/2017 2:56 PM RIVET HOLE MACHINE OPERATOR Temperature 36.9 C (98.4 F) 04/20/2017 2:56 PM RIVET HOLE MACHINE OPERATOR Respiratory Rate 16 04/20/2017 2:56 PM RIVET HOLE MACHINE OPERATOR Oxygen Saturation 98% 04/20/2017 2:56 PM RIVET HOLE MACHINE OPERATOR Inhaled Oxygen Concentration - - Weight 86.2 kg (190 lb) 04/20/2017 2:56 PM RIVET HOLE MACHINE OPERATOR Height 165.1 cm (5' 5) 04/20/2017 2:56 PM RIVET HOLE MACHINE OPERATOR Body Mass Index 31.62 04/20/2017 2:56 PM RIVET HOLE MACHINE OPERATOR Plan of Treatment Health Maintenance Due Date Last Done Comments COLOGUARD (AGES 45-75) - COL ON CA SCREENING 1965 COLON MONITORING 1966 COLONOSCOPY - COLON CA SCREENING 1966 CT COLONOGRAPHY - COLON CA SCREENING 1965 Colorectal Cancer Screening 1966 FIT - COLON CA SCREENING 1966 FLEX SIG - COLON CA SCREENING 1966 LIPID TESTING 1966 HIV SCREENING 1981 HEPATITIS C SCREENING 07/09/1984 DTAP/TDAP/TD VACCINES (1 - Tdap) 1985 HEPATITIS B VACCINE (1 of 3 - 19+ 3-dose series) 1985 PNEUMOCOCCAL VACCINE 50+ (1 of 1 - PCV) 2016 ZOSTER VACCINE (1 of 2) 2016 SCREENING FOR DIABETES 08/06/2019 7, 08/05/2016, 07/31/2016 COVID-19 VACCINE (1 - 2023-2 5 season) 2024 DEPRESSION SCREENING 06/14/2024 INFLUENZA VACCINE (#1) 2025 HIB VACCINE Aged Out No longer eligi ble based on patient's age to complete this topic HPV VACCINE Aged Out No longer eligi ble based on patient's age to complete this topic MENINGOCOCCAL (Group B) VACCINE SHARED DECISION-MAKING Aged Out No longer eligible based on patient's age to complete this topic MENINGOCOCCAL GROUPS A/C/Y/W VACCINE Aged Out No longer eligible b ased on patient's age to complete this topic Procedures Procedure Name Priority Date/Time Associated Diagnosis Comments BASIC METABOLIC PANEL (CALCIUM TOTAL) Routine 08/06/2016 6:23 AM RIVET HOLE MACHINE OPERATOR from Last 3 Months or Most Recently Relevant to Health Maintenance Results * (ABNORMAL) BASIC METABOLIC PANEL (CALCIUM TOTAL) (08/06/2016 6:23 AM RIVET HOLE MACHINE OPERATOR) BUN 14 7 - 26 mg/dL [facility] Creatinine 0.9 0.6 - 1.2 mg/dL [facility] Sodium 139 136 - 145 mmol/L [facility] Potassium 3.5 3.5 - 4.5 mmol/L [facility] Chloride 108(H) 98 - 107 mmol/L [facility] CO2 20(L) 22 - 29 mmol/L [facility] Glucose 96 70 - 115 mg/dL [facility] Calcium 8.1(L) 8.4 - 10.2 mg/dL [facility] Anion Gap 15 8 - 18 [facility] BUN/Creatinine Ratio 16 7 - 23 [facility] Osmolality Calculated 288 270 - 300 mOsm/kg [facility] eGFR >60 >60 mL/min/1.7 3 m2 [facility] Blood specimen (specimen) BLOOD SPECIMEN / Unknown 08/06/2016 6:23 AM RIVET HOLE MACHINE OPERATOR 08/06/2016 6:30 AM RIVET HOLE MACHINE OPERATOR Julio Figueroa MD LAB - CHEMISTRY ORDERABLES Fin al Result Performing Organization Address City/State/[facility] Co de Phone Number [address] [phone] from Last 3 Months or Most Recently Relevant to Health Maintenance Insurance [employer] Care Teams Gold Reclaimer Relationship Specialty Start Date End Date Chuck Bullard DO [address] [place] [address] PCP - General 03/05/22
--- OUTSIDE RECORDS SUMMARY | 2025-02-02 07:20 | XMS_ITS | Clinical Summary ---
Author Organization [facility] Address [address] [place] [id number] Care Team Providers Care Knockout Machine Operator Name Role Phone Chuck Bullard DO Primary Care Provider [phone] Allergies Active Allergy Reactions Criticality Noted Date Comments Penicillins Unknown 07/02/2021 Medications topiramate 50 MG Tab Take 50 mg by mouth daily. 06/05/2021 Active lisinopril 20 MG tablet Take 1 tablet by mouth daily. Active clonazePAM 0.5 MG tablet Take 0.5 mg by mouth 2 (two) times daily. Active omeprazole 40 MG capsule Take 40 mg by mouth daily. Active fluticasone propionate 50 MCG/ACT nasal spray 2 sprays by Each Nostril route daily. Active loratadine 10 MG tablet Take 10 mg by mouth daily. Active aspirin EC 81 MG tablet Take 1 tablet (81 mg total) by mouth daily. 30 tablet 07/04/2021 Active atorvastatin 80 MG tablet Take 1 tablet (80 mg total) by mouth daily. 30 tablet 07/03/2021 Active Active Problems Problem Noted Date Diagnosed Date Acute CVA (cerebrovascular accident) ([facility]) 07/02/2021 Acute postoperative pulmonary insufficiency 10/12 Hypertension, essential 10/21/2017 Pain following surgery or procedure 10/21/2017 Cervical myelopathy ([facility]) 08/04/2016 HNP (herniated nucleus pulposus) with myelopathy , cervical 07/22/2016 Essential tremor 04/15/2015 Vestibular migraine 04/15/2015 Involuntary quiver 04/18/2012 Migraine headache 04/18/2012 Dizziness 03/19/2011 Family History Medical History Relation Comments Heart Disease Maternal Grandfather Heart Disease Maternal Grandmother Heart Disease Paternal Grandfather Relation Status Comments Maternal Grandfather Maternal Grandmother Paternal Grandfather Social History Tobacco Use Types Packs/Day Years Used Date Smoking Tobacco: Former Cigarettes Q uit: 07/02/2011 Smokeless Tobacco: Never Alcohol Use Standard Drinks/Week Comments Yes 0 (1 standard drink = 0.6 oz pur e alcohol) occ Sex and Gender Information Value Date Recorded Sex Assigned at Not on file Legal Sex Male 7:41 AM LOCATION MAN Gender Identity Not on file Sexual Orientation Not on file Last Filed Vital Signs Vital Sign Reading Time Taken Comments Blood Pressure 134/77 07/03/2021 1:00 PM LOCATION MAN Pulse 68 07/03/2021 1:00 PM LOCATION MAN Temperature 36 C (96.8 F) 07/03/2021 1:00 PM LOCATION MAN Respiratory Rate 18 07/03/2021 1:00 PM LOCATION MAN Oxygen Saturation 98% 07/03/2021 1:00 PM LOCATION MAN Inhaled Oxygen Concentration - - Weight 97.5 kg (214 lb 15.2 oz) 07/03/2021 4:43 AM LOCATION MAN Height 165.1 cm (5' 5) 07/02/2021 7:00 PM LOCATION MAN Body Mass Index 35.77 07/02/2021 7:00 PM LOCATION MAN Plan of Treatment Health Maintenance Due Date Last Done Comments Colorectal Cancer Screening Colonoscopy (10 Years) 1966 Annual Physical 1969 Hepatitis C 1984 DTaP, Tdap and Td Vaccines ( 1 - Tdap) 1985 Hepatitis B Vaccines (1 of 3 - 19+ 3-dose series) 1985 Pneumococcal Vaccine: 50+ Years (1 of 1 - PCV) 2016 Zoster Vaccines (1 of 2) 2016 COVID-19 Vaccine (2023-2 5 season) 2024 04/01/2021, 09/09/2020, 08/19/2020 Meningococcal B Vaccine Aged Out No l onger eligible based on patient's age to complete this topic Meningococcal Vaccine Aged Out No whitney pushpa eligible based on patient's age to complete this topic RSV Immunizations Under 20 Months Aged Out No longer eligible b ased on patient's age to complete this topic Goals Goal Patient Goal Type Associated Problems Recent Progress Patient-Stated? Author Patient will return to prior living situation and remain independent in ADLs upon discharge from hospital General No Stephanie Oswald, CONGRESSIONAL DISTRICT AIDE Insurance [employer] OPEN ACCESS [facility] Advance Directives * Full Code (Latest Code Status on File) Date Activated Date Inactivated Comments 07/02/2021 3:41 PM 07/03/2021 5:06 PM Care Teams Knockout Machine Operator Relationship Specialty Start Date End Date Chuck Bullard DO [address] [address] PCP - General INTERNAL MEDICINE 07/02/21
--- OUTSIDE RECORDS SUMMARY | 2025-02-02 07:20 | XMS_ITS | Clinical Summary ---
Author Organization [facility] Address [address] [place] [address] Care Team Providers Care Ed Case Manager Name Role Phone Tushar Webber MD Primary Care Provider [phone] Allergies Active Allergy Reactions Criticality Noted Date Comments Penicillins Unknown,Other (See comments) Low 05/08/2016 Told as child he was allergic,, Medications ibuprofen (ibuprofen) 200 mg tab/cap take 1 capsule by oral route every 6 hours as needed 0 0 5 Active aspirin 81 mg enteric coated tablet Take 1 tablet (81 mg total) by mouth daily 2 Active atorvastatin (LIPITOR) 80 mg tablet Take 1 tablet (80 mg total) by mouth daily 2 Active fluticasone propionate (FLONASE) 50 mcg/actuation nasal spray Active loratadine (CLARITIN) 10 mg tablet Take 1 tablet (10 mg total) by mouth daily Active omeprazole (PriLOSEC) 40 mg capsule Take 1 capsule (40 mg total) by mouth daily 2 Active carvediloL (COREG) 6.25 mg tablet TAKE 1 TABLET BY MOUTH EVERY 12 HOURS MUST ADMINISTER WITH A MEAL/FOOD 3 Active lisinopriL (PRINIVIL,ZESTRIL) 40 mg tablet Take 1 tablet (40 mg total) by mouth daily 3 Active topiramate (TOPAMAX) 50 mg tabletIndications: Essential tremor,Vestibular migraine,Migraine without aura and without status migrainosus, not intractable TAKE 1 TABLET BY MOUTH EVERY DAY AT NIGHT 90 tablet 3 4 Active clonazePAM (KlonoPIN) 0.5 mg tabletIndications: Essential Tremor Take 1 tablet (0.5 mg total) by mouth 2 (two) times a day 60 tablet 5 4 Active clonazePAM (KlonoPIN) 0.5 mg disintegrating tablet Take 1 tablet (0.5 mg total) by mouth 2 (two) times a day as needed for seizures 60 tablet 5 Active Active Problems Problem Noted Date Diagnosed Date Acute postoperative pulmonary insufficiency 10/12 Hypertension, essential 10/21/2017 Pain following surgery or procedure 10/21/2017 Cervical myelopathy 08/04/2016 HNP (herniated nucleus pulposus) with myelopathy , cervical 07/22/2016 Essential tremor 04/15/2015 Vestibular migraine 04/15/2015 Involuntary quiver 04/18/2012 Migraine headache 04/18/2012 Dizziness 03/19/2011 Encounters Date Type Department Care Team Description 01/03/2025 Orders Only [facility] Medicine Ophthalmology [facility] [address] [place] [address] Jose Manuel Aggarwal MD from Last 3 Months Surgical History Surgery Date Site/Laterality Comments KNEE ARTHROSCOPY 01/14/2017 Right Medical History Medical History Date Comments Hx Other Medical Back Pain; Comm ents: JNS 06/25/2014 - Hypertension Hypertension Hx Other Medical Headache, migra ine Family History Medical History Relation Name Comments Glaucoma Maternal Grandfather Glaucoma Maternal Grandmother Hypertension Other Family history of Hypertension; Relation Name Status Comments Maternal Grandfather Maternal Grandmother Other Social History Tobacco Use Types Packs/Day Years Used Date Smoking Tobacco: Never Smokeless Tobacco: Never Sex and Gender Information Value Date Recorded Sex Assigned at Not on file 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 Gender Identity Not on file Sexual Orientation Not on file Obstetrics History Last Filed Vital Signs Vital Sign Reading Time Taken Comments Blood Pressure 126/91 12/23/2017 8:53 AM CDT Pulse 76 12/23/2017 8:53 AM CDT Temperature - - Respiratory Rate - - Oxygen Saturation - - Inhaled Oxygen Concentration - - Weight 92.1 kg (203 lb) 12/23/2017 8:53 AM CDT Height 166.4 cm (5' 5.5) 12/23/2017 8:53 AM CDT Body Mass Index 33.27 12/23/2017 8:53 AM CDT Plan of Treatment Health Maintenance Due Date Last Done Comments Colon Cancer Screening-Colonoscopy 1966 Depression Screening 1966 Hepatitis C Screening 1966 Prostate Cancer Screening-PSA 1966 DTaP/Tdap/Td Vaccine (1 - Tdap) 1977 Hepatitis B Screening 1984 Regular Well Visit/Exam 18-64 1984 Zoster Vaccine (1 of 2) 2016 Covid-19 Vaccine (2023-2 5 season) 2024 04/01/2021, 09/09/2020, 08/19/2020 Influenza Vaccine (#1) 2025 Pneumococcal vaccine <65 Aged Out No longer eligible based on patient's age to complete this topic Insurance [employer] [facility] [employer] OPEN ACCESS [facility] [id number] Care Teams Ed Case Manager Relationship Specialty Start Date End Date Tushar Webber MD PCP - General 07/23/14
[2025-02-02 08:09] LABS: Hematocrit 45.9 % (42.0-52.0); Hemoglobin 15.4 g/dL (14.0-18.0); Immature Granulocyte Percent A 0.4 % (0-0.5); Lymphocytes Absolute Auto 1.81 K/mm3 (0.9-3.2); Mean Corpuscular HGB Conc 33.6 g/dl (32-36); Mean Corpuscular Hemoglobin 27.8 pg (26-34); Mean Corpuscular Volume 82.9 fl (80-100); Nucleated Red Blood Cells Absolute Auto 0.000 K/mm3 (0.0-0.012); Nucleated Red Blood Cells Perc 0.0 % (0.0-0.2); Platelet Count Result 214 k/mm3 (150-375); Red Blood Count 5.54 M/mm3 (4.6-6.20); White Blood Count 7.5 K/mm3 (4.5-10.0)
[2025-02-02 08:22] LABS: Hemoglobin A1C 5.7 % (<5.7)
[2025-02-02 08:31] LABS: Alanine Aminotransferase 27 U/L (6-50); Albumin Level 3.8 g/dL (3.5-5.1); Alkaline Phosphatase 80 U/L (38-126); Anion Gap 6 mmol/L (4-12); Aspartate Amino Transferase 25 U/L (17-59); Bilirubin,Total 0.5 mg/dL (0.2-1.3); Blood Urea Nitrogen 24 mg/dL (9-20); Calcium 8.8 mg/dL (8.4-10.2); Carbon Dioxide 24 mmol/L (22-30); Chloride 107 mmol/L (98-107); Cholesterol 101 mg/dL (0-200); Estimated Glomerular Filt Rate > 60; Glucose 113 mg/dL (65-110); HDL Direct 36 mg/dL; Potassium 3.8 mmol/L (3.4-5.0); Sodium 137 mmol/L (137-145); Total Protein 6.9 g/dL (6.3-8.2); Triglycerides 76 mg/dL (<150)
[2025-02-02 09:06] LABS: Prostate Specific Antigen 2.3 ng/mL (< OR = 4.0)
== END 2025-02-02 07:17 | disposition home or self-care (01) ==
LOC: ANHLAB 07:17
PROVIDERS: PCP Nurse Practitioner Family; Visit Provider Psychiatry & Neurology Neurology
DX: E66.09 Other obesity due to excess calories (principal); I10 Essential (primary) hypertension; Z68.37 Body mass index [BMI] 37.0-37.9, adult; G47.33 Obstructive sleep apnea (adult) (pediatric); F32.9 Major depressive disorder, single episode, unspecified; I63.9 Cerebral infarction, unspecified; Z12.5 Encounter for screening for malignant neoplasm of prostate
CPT/HCPCS: 36415; 80053; 80061; 83036; 84153; 85025; G0103